=== PATIENT | male | born 1990 | race Caucasian/White ===

== ENCOUNTER 2018-02-07 13:59 | Emergency (ER) | payer MEDICAID ==
[~2018-02-07] VITALS: Ht 175.3 cm; Wt 86.2 kg
[2018-02-07 14:06] VITALS: BP_SYST 129
[2018-02-07] MEDS ORDERED: BACITRACIN 1 GM OINT TP ONE ×2 (14:37→14:45)
[2018-02-07 14:46] VITALS: BP_SYST 122
== END 2018-02-07 14:45 | disposition home or self-care (01) ==
LOC: SED 13:59
DX: S60.427A Blister (nonthermal) of left little finger, initial encounter (principal); L03.012 Cellulitis of left finger; X58.XXXA Exposure to other specified factors, initial encounter; Y93.89 Activity, other specified; Y92.89 Other specified places as the place of occurrence of the external cause; Y99.8 Other external cause status
CPT/HCPCS: 99283

== ENCOUNTER 2019-01-27 15:06 | Emergency (ER) | payer MEDICAID ==
[~2019-01-27] VITALS: Ht 175.3 cm; Wt 81.6 kg
[2019-01-27 15:21] VITALS: BP_SYST 150
[2019-01-27 16:20] VITALS: BP_SYST 135
== END 2019-01-27 16:20 | disposition home or self-care (01) ==
LOC: SED 15:06
DX: F29 Unspecified psychosis not due to a substance or known physiological condition (principal); R03.0 Elevated blood-pressure reading, without diagnosis of hypertension
CPT/HCPCS: 99284

== ENCOUNTER 2019-02-09 15:45 | Emergency (ER) | payer MEDICAID ==
[~2019-02-09] VITALS: Ht 175.3 cm; Wt 81.6 kg
--- NOTE | 2019-02-09 15:45 | NUR ---
Patient to ER bed 08 for evaluation. Side rails up.
--- NOTE | 2019-02-09 15:50 | NUR ---
Pt AAOx4 ambulated into ED c/o pain to balls and heels of bilateral feet x 1 month with worsening symptoms today while walking barefoot at [employer]. No active bleeding present. No other injuries/complaints per pt/noted. Will continue to monitor.
[2019-02-09 15:51] VITALS: BP_SYST 124
--- NOTE | 2019-02-09 16:00 | NUR ---
ER LEANNA Vences examining patient.
[2019-02-09] MEDS ORDERED: IBUPROFEN 600 MG TABLET PO ONE (16:15)
--- NOTE | 2019-02-09 16:15 | NUR ---
Luana, puddvi, apple juice, water provided.
--- NOTE | 2019-02-09 16:21 | NUR ---
Patient given written and verbal discharge instructions and verbalizes understanding. ER SENIOR SOFTWARE QA ENGINEER Vangie discussed with patient the results and treatment provided. Patient in stable condition. ID arm band removed. Rx of Motrin, Clotrimazole given. Patient educated on pain management and to follow up with PMD. Pain Scale 0. Opportunity for questions provided and answered. Medication side effect fact sheet provided.
--- NOTE | 2019-02-09 16:26 | NUR ---
Pt requests taxi to [facility] on [address]. tool machine shop supervisor notified.
--- NOTE | 2019-02-09 16:32 | NUR ---
Taxi ETA 30 min
[2019-02-09 16:40] VITALS: BP_SYST 118
--- NOTE | 2019-02-09 16:58 | NUR ---
Pt not in bed 08, unable to be located. Pt not found in ER bathrooms nor outside ED.
== END 2019-02-09 16:21 | disposition home or self-care (01) ==
LOC: SED 15:45
DX: B35.3 Tinea pedis (principal); L84 Corns and callosities; R03.0 Elevated blood-pressure reading, without diagnosis of hypertension
CPT/HCPCS: 99282